=== PATIENT | female | born 1955 | race Caucasian/White ===

== ENCOUNTER 2024-05-02 12:20 | Day surgery (SDC) | payer MEDICARE, OTHER ==
[~2024-05-02] VITALS: Ht 165.1 cm; Wt 84.5 kg
[~2024-05-02 12:20] MED LIST: ATOR80 PO; Balanced Salt Epinephrine Irrigation Solution 500 mL IR SCH; Diazepam 2 MG Tab PO PRN; Diazepam 5 MG Tab PO PRN; Diazepam 5 MG Tab PO SCH; LEVSOD150 PO; Lidocaine HCl/Pf 1% 5 ML VIAL XX SCH; Moxifloxacin HCL 0.5 MG/0.1 ML 0.4MLSYR LEFTEYE SCH; Ondansetron 4 MG SoluTab MM PRN; PHENYLEPHRINE\\TROPICAMIDE\\TETRACAINE OPHTHALMIC DILATING SOLN LEFTEYE PRN; Povidone-Iodine 450 DROP/30 ML Solution LEFTEYE SCH; Povidone-Iodine 450 DROP/30 ML Solution ONE; SERT100; TRAM50; Tetracaine HCl/Pf 0.5% Opth Soln 4 ml ONE; Triamcinolone Inj Susp 40 MG / ML 1ML Vial INJ SCH; Triamcinolone Inj Susp 40 MG / ML 1ML Vial ONE
[2024-05-02] MEDS ORDERED: Diazepam 10 MG Tab ONE (13:10)
--- NOTE | 2024-05-02 14:09 | NUR ---
05/02/24 1409 Eunice Cristobal PT REPORTED ANXIETY LEVEL AT 1-210 IMMEDIATELY PRIOR TO ADMINISTRATION OF VALIUM 10MG PO AT 1324. REASSESSED AT 1350 AND PT REPORTED ANXIETY "LESS THAN IT WAS".
[2024-05-02 14:38] VITALS: BP 123/68
== END 2024-05-02 14:55 | disposition home or self-care (01) ==
LOC: ORSCSDS 12:20
PROVIDERS: Ophthalmology
PROC: 08RK3JZ Replacement of Left Lens with Synthetic Substitute, Percutaneous Approach (ICD-10-PCS; principal; 2024-05-02 14:00)
DX: H25.813 Combined forms of age-related cataract, bilateral (principal); E07.9 Disorder of thyroid, unspecified; E78.5 Hyperlipidemia, unspecified; K21.9 Gastro-esophageal reflux disease without esophagitis; E66.9 Obesity, unspecified; Z79.899 Other long term (current) drug therapy
CPT/HCPCS: A9270; J3301; V2632

== ENCOUNTER 2024-05-09 08:16 | Day surgery (SDC) | payer MEDICARE, OTHER ==
[~2024-05-09] VITALS: Ht 165.1 cm; Wt 83.7 kg
[~2024-05-09 08:16] MED LIST changes: -Diazepam 2 MG Tab PO PRN; -Moxifloxacin HCL 0.5 MG/0.1 ML 0.4MLSYR LEFTEYE SCH; +Moxifloxacin HCL 0.5 MG/0.1 ML 0.4MLSYR RIGHTEYE SCH; -PHENYLEPHRINE\\TROPICAMIDE\\TETRACAINE OPHTHALMIC DILATING SOLN LEFTEYE PRN; +PHENYLEPHRINE\\TROPICAMIDE\\TETRACAINE OPHTHALMIC DILATING SOLN RIGHTEYE PRN; -Povidone-Iodine 450 DROP/30 ML Solution LEFTEYE SCH; +Povidone-Iodine 450 DROP/30 ML Solution RIGHTEYE SCH; -Triamcinolone Inj Susp 40 MG / ML 1ML Vial ONE
--- NOTE | 2024-05-09 09:08 | NUR ---
05/09/24 0908 Eunice Cristobal IN AT 0858 PLEANALILIA IN AT 0900 CALL LIGHT AT BEDSIDE
[2024-05-09] MEDS ORDERED: Midazolam HCl 1MG / ML 2ML Vial ONE (09:35)
[2024-05-09] MEDS ORDERED: FentaNYL Citrate 50 MCG/ML 2 ML Injection ONE (09:35)
[2024-05-09 10:00] VITALS: BP 118/69
--- NOTE | 2024-05-09 10:16 | NUR ---
05/09/24 Andra Vidal D/Radha INSTRUCTIONS GIVEN TO PT, UNDERSTANDING VERBALIZED. PT GOING HOME W/ ALL BELONGINGS, INCLUDING EYE KIT. PT DENIES PAIN/NAUSEA, TOLERATING PO LIQUIDS W/O COMPLAINT. PT WHEELED TO PRIVATE VEHICLE, STEADY GAIT NOTED UPON TRANSFER FROM TO VEHICLE. NO VISIBLE SIGNS OF DISTRESS NOTED.
== END 2024-05-09 10:15 | disposition home or self-care (01) ==
LOC: ORSCSDS 08:16
PROVIDERS: Ophthalmology
PROC: 08RJ3JZ Replacement of Right Lens with Synthetic Substitute, Percutaneous Approach (ICD-10-PCS; principal; 2024-05-09 10:00)
DX: H25.811 Combined forms of age-related cataract, right eye (principal); Z96.1 Presence of intraocular lens; E78.5 Hyperlipidemia, unspecified; E07.9 Disorder of thyroid, unspecified; E66.9 Obesity, unspecified; Z68.30 Body mass index [BMI] 30.0-30.9, adult; Z79.899 Other long term (current) drug therapy
CPT/HCPCS: J2250; J3010; V2632